=== PATIENT | male | born 1935 | race Caucasian/White ===

== ENCOUNTER 2019-07-27 07:24 | Day surgery (SDC) | payer MEDICARE, SELFPAY ==
[2019-07-26 14:42] VITALS: BMI 30.7
[2019-07-27] VITALS (9 sets, daily range): BP systolic 107–134; BP diastolic 52–72; PULSE 55–65; RESP 11–17; TEMP 35.8–36.3; O2SAT 93–97; BMI 30.7
[2019-07-27] MEDS: LACTATED RINGERS 1,000 ML 42 ML IV (08:26)
[2019-07-27] MEDS: ACETAMINOPHEN 325 MG TABLET 975 MG PO (08:45)
[2019-07-27] MEDS: GABAPENTIN 300 MG CAPSULE PO (08:46)
--- NOTE | 2019-07-27 09:40 | SUR.OPER ---
Supine on padded OR bed, head on pillow, right arm secured on padded arm board at <90 degrees abduction,left arm on arm table under control of surgeon legs uncrossed, safety belt at thigh, tape over blanket over lower legs.
[2019-07-27] MEDS: BUPIVACAINE 0.5% W/ EPI (PF) 10 ML VIAL INJ (09:44)
--- NOTE | 2019-07-27 09:59 | PM.OP.1 ---
Operative Date/Time/Diagnoses Date of procedure: 07/27/19 Time of procedure: 09:16 Pre-op diagnosis: Left 4th and 5th finger trigger finger Post-op diagnosis: same Procedure & Clinicians Procedure: Fourth and 5th trigger finger release left hand Same procedure as scheduled: Yes Indications: Triggering to the 4th and 5th finger Surgeon: Donald Hinojosa Click Yes if Unassisted: Yes Anesthesia Type: General Operative Notes Findings: Catching of the flexor tendon at the A1 devaughn to both the ring and small finger. Closure Type: primary Specimen(s): none sent Estimated Blood Loss (mL): 0 Blood products transfused: none Tourniquet time (min): 12 Procedure in detail: On date of service, the patient was met in the holding area. Patients operative site was signed and witnessed by the OR staff. The surgery was once again discussed with the patient, and any remaining questions they had were answered fully. Patient was taken back to the operating theater and placed on the operating table in a supine position. Great care was taken to ensure that all bony prominences were carefully padded. A well-padded tourniquet was placed up along the upper extremity. A timeout was performed to verify patient's name, procedure, and operative site. The arm was then prepped and draped in the normal sterile fashion. A 15 blade was used to incise through skin at the distal palmar crease. Just skin was incised. Pickups and tenotomies were used to bluntly dissect protecting the neurovascular bundles. Blunt dissection was continued until we had good visualization of the A1 devaughn to the small finger. Neurovascular bundles on either side were identified and protected. Once this was done, the A1 devaughn was sharply incised allowing the finger to move freely without any locking or catching. Next, same procedure was repeated for the ring finger. Once we had good visualization of the A1 devaughn it was sharply incised using the 15 blade followed by tenotomy scissors. This allowed full motion of the ring finger without any locking or catching. The wounds were copiously irrigated and closed with nylon. Patient's hand was cleaned, dressed, and dried knee was taken to the PACU in stable condition. Complications: none Post-operative Condition: stable Disposition: PACU Plan for aftercare: Patient will follow our postoperative protocol for trigger finger release.
--- NOTE | 2019-07-27 10:23 | SUR.PHASEII ---
Patient denies pain. Tolerating po. WHELAN's x 4. States his two fingers on left hand feel numb.
== END 2019-07-27 10:49 | disposition home or self-care (01) ==
PROVIDERS: PCP Family Medicine; Referring Provider Orthopaedic Surgery; Visit Provider Orthopaedic Surgery
PROC: (CPT 26055; principal; 2019-07-27 09:00)
DX: M65.352 Trigger finger, left little finger (principal); M65.342 Trigger finger, left ring finger; I10 Essential (primary) hypertension; I25.10 Atherosclerotic heart disease of native coronary artery without angina pectoris; I48.91 Unspecified atrial fibrillation; Z95.1 Presence of aortocoronary bypass graft; E66.9 Obesity, unspecified; Z68.30 Body mass index [BMI] 30.0-30.9, adult
CPT/HCPCS: 26055 ×2; J2405; J2704

== ENCOUNTER → 2020-11-27 11:07 | Outpatient (CLI) | payer MEDICARE, SELFPAY ==
[2020-11-27 12:48] LABS: COVID19 -Nasal RAPID Negative (Negative)
== END ==
PROVIDERS: PCP Family Medicine; Visit Provider Physician Assistant
DX: Z01.812 Encounter for preprocedural laboratory examination (principal); Z20.822 Contact with and (suspected) exposure to COVID-19
CPT/HCPCS: 87635; C9803

== ENCOUNTER 2020-11-28 10:48 | Day surgery (SDC) | payer MEDICARE, SELFPAY ==
[2020-11-25 08:11] VITALS: BMI 29.0
[2020-11-28] VITALS (7 sets, daily range): BP systolic 106–144; BP diastolic 53–72; PULSE 54–70; RESP 12–16; TEMP 36.2–36.5; O2SAT 93–96; BMI 29.8
[2020-11-28] MEDS: LACTATED RINGERS 1,000 ML 42 ML IV ×2 (11:49→14:37)
--- NOTE | 2020-11-28 14:15 | PM.PREOP ---
Pre-operative Note Interval Note History & Physical reviewed/Exam performed by Physician: Yes Changes to H&P: No
[2020-11-28] MEDS: CEFAZOLIN 1 GM VIAL 2 GM IV (14:46)
--- NOTE | 2020-11-28 14:53 | SUR.OPER ---
Supine on padded OR bed, head on pillow, left arm secured on padded arm board at <90 degrees abduction, right arm prepped and draped in sterile field on hand table legs uncrossed, safety belt at thigh, tape over blanket over lower legs.
[2020-11-28] MEDS: BUPIVACAINE 0.5% (PF) VIAL 30 ML INJ (15:00)
--- NOTE | 2020-11-28 15:05 | PM.OP.1 ---
Operative Date/Time/Diagnoses Date of procedure: 11/28/20 Time of procedure: 14:30 Pre-op diagnosis: Right carpal tunnel Post-op diagnosis: same Procedure & Clinicians Procedure: Right carpal tunnel release Same procedure as scheduled: Yes Indications: Right carpal tunnel Surgeon: Donlad Hinojosa Click Yes if Unassisted: Yes Anesthesia Type: General Operative Notes Findings: Compression of the median nerve at the carpal tunnel Closure Type: primary Specimen(s): none sent Estimated Blood Loss (mL): 0 Tourniquet time (min): 10 Procedure in detail: On date of service, the patient was met in the holding area. Patients operative site was signed and witnessed by the OR staff. The surgery was once again discussed with the patient, and any remaining questions they had were answered fully. Patient was taken back to the operating theater and placed on the operating table in a supine position. Great care was taken to ensure that all bony prominences were carefully padded. A well-padded tourniquet was placed up along the upper extremity. A timeout was performed to verify patient's name, procedure, and operative site. The arm was then prepped and draped in the normal sterile fashion. A 15 blade was used to incise through skin In the center of the palm. Pickups and tenotomy scissors were used to dissect down until the palmar fascia was visualized. The palmar fascia was then sharply incised using a 15 blade. This gave us good visualization of the carpal ligament. A small opening was made into the carpal ligament, and a curved hemostat was placed into that opening. A 15 blade was then used to sharply incise the carpal ligament with the structures beneath being protected by the hemostat. Pickups and Metzenbaum scissors were used to complete the decompression both distally and proximally. This provided a complete decompression of the median nerve. The wound was then irrigated and closed with nylon. The hand was then cleaned, dried, and dressed. Patient was taken to the PACU in stable condition. Post-operative Condition: stable Disposition: PACU Plan for aftercare: Patient follow-up postoperative protocol for carpal tunnel release
== END 2020-11-28 15:54 | disposition home or self-care (01) ==
PROVIDERS: PCP Family Medicine; Referring Provider Orthopaedic Surgery; Visit Provider Orthopaedic Surgery
PROC: (CPT 64721; principal; 2020-11-28 12:45)
DX: G56.01 Carpal tunnel syndrome, right upper limb (principal); I25.10 Atherosclerotic heart disease of native coronary artery without angina pectoris; E78.5 Hyperlipidemia, unspecified; I10 Essential (primary) hypertension; E66.9 Obesity, unspecified; Z68.28 Body mass index [BMI] 28.0-28.9, adult
CPT/HCPCS: 64721; J0690; J2704; J3010

== ENCOUNTER → 2023-07-08 12:29 | Outpatient (CLI) | payer MEDICARE, SELFPAY ==
--- NOTE | 2023-07-08 12:36 | DI.CT.S_ITS ---
PROCEDURE: CT LUMBAR SPINE WO CON INDICATIONS: Radiculopathy, lumbar region TECHNIQUE: Noncontrast 3 mm thick sections acquired from the T12 level to the sacrum. Sagittal and coronal reformats were constructed. For radiation dose reduction, the following was used: automated exposure control. COMPARISON: [facility], CT, L-SPINE WITHOUT CONTRAST, 12/08/2016, 9:43. FINDINGS: Image quality: Excellent. Bones: Dextrocurvature of the lumbar spine. Right lateral listhesis of L2 on L3 and L3 on L4 is increased compared to prior. Severe multilevel degenerative changes with severe disc height loss, vacuum disc phenomenon, degenerative endplate changes and spurring throughout the lumbar spine. Multilevel facet arthropathy. Moderate to severe central canal stenosis at L3-L4. Mild multilevel central canal stenosis at other levels. Severe osseous neural foraminal stenosis on the left T12-L1, L1-L2 and L2-L3 as well as L5-S1. Severe osseous neural foraminal stenosis on the right at L4-5 and L5-S1. Soft tissues: No retroperitoneal masses or hematomas. Visualized aorta is normal in caliber. Atherosclerotic vascular calcifications. Diverticulosis without evidence of acute diverticulitis within the visualized bowel. IMPRESSION: Severe degenerative changes of the lumbar spine which have progressed compared to prior. There is worsening dextroscoliotic curvature. Moderate to severe central canal stenosis L3-L4. Multilevel mild central canal stenosis at other levels. Multilevel severe osseous neural foraminal stenosis as described above. Dictated by: Nigel Denise M.D. on 07/08/2023 at 16:07 Approved by: Nigel Denise M.D. on 07/08/2023 at 16:14
== END ==
LOC: CT 12:32
PROVIDERS: PCP Physician Assistant; Referring Provider Physical Medicine & Rehabilitation; Visit Provider Physical Medicine & Rehabilitation
DX: M47.26 Other spondylosis with radiculopathy, lumbar region (principal); M48.061 Spinal stenosis, lumbar region without neurogenic claudication; M48.07 Spinal stenosis, lumbosacral region; M48.05 Spinal stenosis, thoracolumbar region; M41.9 Scoliosis, unspecified
CPT/HCPCS: 72131

== ENCOUNTER → 2023-09-21 09:09 | Outpatient (CLI) | payer MEDICARE, SELFPAY ==
--- NOTE | 2023-09-21 09:10 | DI.NM.S_ITS ---
PROCEDURE: NM MICHAEL PERF SPECT R&S PHARM Rest and pharmacological stress myocardial perfusion SPECT with gated imaging and ejection fraction RADIOPHARMACEUTICAL: 24.3 mCi Tc-99m tetrafosmin IV at rest and 24.0 mCi Tc-99m tetrafosmin IV at peak effect of pharmacological stress. [id number] was performed. INDICATIONS: Chest pain/anginal equiv; prior revascularization TECHNIQUE: Radiopharmaceutical was injected at peak stress test, and also at rest. SPECT images were obtained. SPECT myocardial perfusion images were displayed in short axis, horizontal long axis, and vertical long axis views. Gated images were reviewed using [employer] software. COMPARISON: None. CARDIAC STRESS: A pharmacologic stress test was performed under the supervision of an attending staff, using an infusion of lexiscan 0.4mg IV X1. Hemodynamic data: There is normal blood pressure and heart rate response to pharmacologic stress. Symptoms: The patient denied anginal chest pain. Aminophylline: none EKG: No diagnostic changes of ischemia; occasional PACs present. FINDINGS: Raw data: There is good myocardial uptake of radiotracer. No significant motion artifacts. Left ventricle function: Gated images demonstrate normal left ventricular wall thickening. No segmental wall motion abnormalities. No transient ischemic dilation; TID is 0.97 (normal less than 1.3). Left ventricle resting end diastolic volume is 104 mL. Left ventricle stress ejection fraction is 71%; normal range is above 45%. Myocardial perfusion: There is a mildly intense fixed basal to mid inferior wall defect suggesting prior non-transmural infarction but artifact can't be excluded as prone imaging not obtained. No ischemia. SSS 2, SRS 2. IMPRESSION: Abnormal pharm nuclear stress test 1) Mildly intense fixed basal to mid inferior wall defect suggesting prior non-transmural infarction but artifact can't be excluded as prone imaging not obtained. No ischemia. SSS 2, SRS 2. 2) Normal left ventricular size, wall motion, and systolic function (EF post stress 71%). 3) No angina during the study. 4) No ST changes with lexiscan. 5) No prior nuclear stress test available for comparison. Dictated by: Kimberly Marmolejo MD on 09/23/2023 at 13:56 Approved by: Kimberly Marmolejo MD on 09/23/2023 at 13:59
== END ==
PROVIDERS: PCP Physician Assistant; Referring Provider Internal Medicine Cardiovascular Disease; Visit Provider Internal Medicine Cardiovascular Disease
DX: R06.09 Other forms of dyspnea (principal); I25.10 Atherosclerotic heart disease of native coronary artery without angina pectoris; R94.39 Abnormal result of other cardiovascular function study
CPT/HCPCS: 78452; 93017; A9502; J2785